=== PATIENT | male | born 1970 ===

== ENCOUNTER 2018-08-12 11:26 | Emergency (ER) | payer OTHER ==
[~2018-08-12] VITALS: Ht 180.3 cm; Wt 87.1 kg
[2018-08-12] MEDS ORDERED: [UNRECOGNIZED DRUG - OTHER] PO (11:45)
[2018-08-12] MEDS ORDERED: LAMICTAL200 MG PO (11:46)
== END 2018-08-12 19:32 | disposition home or self-care (01) ==
LOC: ER 11:26
DX: I10 Essential (primary) hypertension (principal)